=== PATIENT | male | born 1975 | race Hispanic/Latino ===

== ENCOUNTER → 2023-10-03 | Day surgery (SDC) | payer OTHER ==
[~2023-10-03] MED LIST: ADDERALL 30 MG30 MG PO; GLUCAGON FOR INJ 1 MG VIAL ONE; HYOSCYAMINE SULFATE 0.5 MG/ML INJ ONE; LIDOCAINE HCL 2% LOCAL INJ 5 ML SDV VIAL INJ ONE; PROPOFOL IV EMULSION 10 MG/ML 20 ML VIAL ONE
[2023-10-03 13:00] VITALS: BP 111/95; PULSE 65; RESP 18; TEMP 97.4; O2SAT 98
== END | disposition home or self-care (01) ==
LOC: OR 10:46
PROVIDERS: ATTEND Internal Medicine Gastroenterology
DX: K92.1 Melena (principal); K64.8 Other hemorrhoids; K59.00 Constipation, unspecified; Z71.3 Dietary counseling and surveillance; I10 Essential (primary) hypertension; Z01.810 Encounter for preprocedural cardiovascular examination; Z79.899 Other long term (current) drug therapy; Z68.31 Body mass index [BMI] 31.0-31.9, adult
CPT/HCPCS: 45378; 93005; J1610; J1980; J2001